=== PATIENT | male | born 1945 | race Two or more races ===

== ENCOUNTER 2024-12-03 18:34 | Emergency (ER) | payer OTHER ==
[~2024-12-03] VITALS: Ht 177.8 cm; Wt 85.8 kg
[2024-12-03 18:34] VITALS: RESP 20; TEMP 97
[2024-12-03] MEDS ORDERED: EPINEPHrine HCL 1 MG/10 ML SYRG IV ONE (18:44)
[2024-12-03] MEDS ORDERED: EPINEPHrine HCL 1 MG/10 ML SYRG ONE (18:51)
--- NOTE | 2024-12-03 18:51 | ED.PDOC ---
CPR-HPI HPI Comments 79-year-old male with known history of CHF, HTN brought in by EMS presents with CPR in progress. Patient arrived at bedside via EMS gurney at 18:34 to bed 15 with ANEL device in place doing compressions. Patient had a witness arrest by family. Family of patient started bystander CPR approximately 5 minutes prior to EMS arrival. Patient has had a total downtime of 34 minutes upon arrival to ER. Per EMS, patient had v-tach x3, and 3 shocks were delivered via defibrillator. EMS gave 3 round of epinephrine and 1 lidocaine. ROSC was achieved briefly at 18:40, but afterwards patient lost pulses again. Despite continued ACLS protocols, TOD was pronounced at 18:51. Family has been notified. 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 Information Source: Emergency Med Personnel Mode of Arrival: EMS Past Medical History PAST MEDICAL HISTORY: CHF, HTN Surgical History: Unknown, Unobtainable Family History Family History: Unknown Social History Smoker: Unknown Alcohol: Unknown Drugs: Unknown Lives In: Home Constitutional: denies: chills, diaphoresis, fatigue, fever, malaise, sweats, weakness, others EENTM: denies: blurred vision, double vision, ear bleeding, ear discharge, ear drainage, ear pain, ear ringing, eye pain, eye redness, hearing loss, mouth pain, mouth swelling, nasal discharge, nose bleeding, nose congestion, nose pain, photophobia, tearing, throat pain, throat swelling, voice changes, others Respiratory: denies: cough, hemoptysis, orthopnea, SOB at rest, shortness of breath, SOB with excertion, stridor, wheezing, others Cardiovascular: denies: chest pain, dizzy spells, diaphoresis, Dyspnea on exertion, edema, irregular heart beat, left arm pain, lightheadedness, palpit ations, PND, syncope, others Gastrointestinal: denies: abdomen distended, abdominal pain, blood streaked b owels, constipated, diarrhea, dysphagia, difficulty swallowing, hematemesis, melena, nausea, poor appetite, poor fluid intake, rectal bleeding, rectal pain, vomiting, others Genitourinary: denies: burning, dysuria, flank pain, frequency, hematuria, incontinence, penile discharge, penile sore, pain, testicle pain, testicle swelling, urgency, others Neurological: denies: dizziness, fainting, headache, left sided numbness, left sided weakness, numbness, paresthesia, pre-existing deficit, right sided numbness, right sided weakness, seizure, speech problems, tingling, tremors, weakness, others Musculoskeletal: denies: back pain, gout, joint pain, joint swelling, muscle pain, muscle stiffness, neck pain, others Integumetry: denies: bruises, change in color, change in hair/nails, dryness, laceration, lesions, lumps, rash, wounds, others Allergic/Immunocompromised: denies: Difficulty Healing, Frequent Infections, Hives, Itching, others Hematologic/Lymphatic: denies: anemia, blood clots, easy bleeding, easy bruisi ng, swollen glands, others Endocrine: denies: excessive hunger, excessive sweating, excessive thirst, exce ssive urination, flushing, intolerance to cold, intolerance to heat, unexplained weight gain, unexplained weight loss, others Psychiatric: denies: anxiety, bipolar disorder, depression, hopeless, panic disorder, schizophrenia, sleepless, suicidal, others Unable to Obtain due to: Medical Urgency (CPR IN PROGRESS) All Other Systems: Reviewed and Negative Physical Exam General Appearance: Severe Distress (CPR IN PROGRESS) HEENT: Other (pupils are fixed and dilated) Neck: Other (intubated) Respiratory: Other (no spontaneous respiration. with bag assisted ventilation, with bilateral clear breath sounds) Cardiovascular: None Breast Exam: Deferred Gastrointestinal: NOT DONE Genitalia: Deferred Pelvic: Deferred Rectal: Deferred Extremities: NOT DONE Musculoskeletal : Apperance: Normal Neurologic: Other (unresponsive) Cerebellar Function: NOT DONE Reflexes: NOT DONE Skin: NOT DONE Lymphatic: NOT DONE Was a procedure done? 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 Indication: Volume resuscitation Room prepared for procedure: Yes Landmen performed hand hygien: Yes Maximal sterile barrier precau: Mask/Eye shield, Sterile gown, Cap, Sterlie gloves, Large sterlie drape Skin Preparation: Chlorhexidine gluconate Skin preparation completely dr: Yes Insertion site: Right, Femoral Central line catheter type: Ove-upubqoco-vri dialysis Number of lumens: 3 Differential Dx CPR Differential Diagnosis: Cardiopulmonary arrest, Dysrhythmia, Electrolyte disorder, Heart Block, Myocardial Infarction, Pulmonary Embolus X-Ray, Labs, Meds, VS Vital Signs Date Time Temp Pulse Resp B/P (MAP) Pulse Ox O2 Delivery O2 Flow Rate FiO2 12/03/24 18:34 97.0 20 97.0 Time of 1ST Reevaluation: 18:40 (ACHIEVED ROSC) Reevaluation 1ST: Improved Time of 2ND Reevaluation: 18:51 (TOD) Reevaluation 2ND: Worsened Patient Education/Counseling: Pt Unresponsive Family Education/Counseling: Other (NOTIFICATION OF ) Additional Information Reviewed patient's previous visit(s): NONE Additional information was gathered from interviewing the following independent historian: 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 pt has an extensive cardiac history, per family friend. he has been in and out of hospitals recently. pt wasgiven a total of 8mg of epi, put on dopamine drip for the transient ROSC, was shocked 3 times by EMT for VT, and he also received 2 amps of bicarb here for prolonged down time. family is at bedside witnessed the resuscitation attempt. time of was 651pm Departure 1 Departure Time of Disposition: 19:12 Impression: Primary Impression: Cardiac arrest Disposition: 20 Condition: Other () Discharged With: Relative, Friend Critical Care Note Critical Care Time?: No Heart Score Heart Score: Heart Score Response (Comments) Value History N/A 0 EKG N/A 0 Age N/A 0 Risk Factors N/A 0 Troponin N/A 0 Total 0 Stability Stability form required: No I personally scribed for KORI HERMAN MD ([email or web address]) on 12/03/24 at 18:51. Electronically submitted by Abran Galloway ([email or web address]). I personally scribed for KORI HERMAN MD ([email or web address]) on 12/03/24 at 18:54. Electronically submitted by Abran Galloway ([email or web address]). I personally scribed for KORI HERMAN MD ([email or web address]) on 12/03/24 at 18:59. Electronically submitted by Abran Galloway ([email or web address]). I personally scribed for KORI HERMAN MD ([facility] on 12/03/24 at 19:03. Electronically submitted by Abran Galloway ([email or web address]). KORI HERMAN MD December 03, 2024 18:51
--- NOTE | 2024-12-03 19:30 | RESUS ---
CODE BLUE ASSESSSMENT History of Events History of Events: Patient brought to ER as a SECURE CODE BLUE. Per EMS, family reports patient suddenly became unresponsive and pulseless. Family denies recent illness or complaints of discomfort. CPR initiated by family. Upon transport to ER patient displayed VTACH on lab clerk. Patient was shocked 3x, administered epi x3, lido x1. Patient intubated in the field. Approximate total downtime prior to ER arrical 34min Initial Information Date: December 03, 2024 Time: 18:33 Location of Arrest: In Field Arrest Witnessed: Yes CPR started by whom: Bystander Pre-Hospital Care: ACLS Type of arrest: Cardiac Pulse Present: No Monitoring: Pulse Oximetry, Capnography, Telemetry Crash Cart Opened and Supplies: Yes Airway Ventilation Breathing at Onset: Assisted Oxygen Delivery Method: Ambu-Bag Artificial Ventilation: Bag/Endo tube Intubation Size: 7.0 cuffed Intubated by: EMS Intubated orally: Yes Tube secured at: 25 Confirmation: Auscultation, Exhaled CO2 Circulation Circulation #1: Time: 18:33 Circulation Comment: Asystole Circulation #2: Time: 18:35 Circulation Comment: PEA Circulation #3: Time: 18:37 Circulation Comment: PEA Circulation #4: Time: 18:39 Pulse Rate (adult): 76 Circulation Comment: ROSC/ BP NOT DETECTABLE Circulation #5: Time: 18:43 Circulation Comment: PEA/CPR RESUMED Circulation #6: Time: 18:45 Circulation Comment: PEA Circulation #7: Time: 18:47 Pulse Rate (adult): 60 Temperature (Fahrenheit): 97.0 Circulation Comment: ROSC/ BP NOT DETECTABLE Circulation #8: Time: 18:49 Circulation Comment: PEA Circulation #9: Time: 18:51 Circulation Comment: PEA Circulation #10: Time: 18:54 Circulation Comment: PEA/ TOD Procedure - Intraosseous Site of Intraosseous: Tibia rosio-medial Intraosseous inserted by: EMS Medications & Response Medications and Responses #1: Medication Time: 18:34 ADULT Medications Given ADULT: Epinephrine 1 mg Route of Administration: IO Medications and Responses #2: Medication Time: 18:35 ADULT Medications Given ADULT: Sodium Bacarbinate 50 meq Route of Administration: IO Medications and Responses #3: Medication Time: 18:37 ADULT Medications Given ADULT: Epinephrine 1 mg Route of Administration: IV Medications and Responses #4: Medication Time: 18:43 ADULT Medications Given ADULT: Epinephrine 1 mg, Sodium Bacarbinate 50 meq Route of Administration: IV Medications and Responses #5: Medication Time: 18:49 ADULT Medications Given ADULT: Epinephrine 1 mg Route of Administration: IV Medications and Responses #6: Medication Time: 18:52 ADULT Medications Given ADULT: Epinephrine 1 mg Route of Administration: IV Procedure - Central Venous Cat Central venous catheter time: 18:39 Central venous catheter site: Rt Femoral Central Venous Catheter Insert: DR HERMAN Nurses Notes [place] Coma Scale Eye Opening: None (1) [place] Coma Scale Verbal: None (1) [place] Coma Scale Motor: None (1) Pupil Reaction: Non Reactive Bedside Blood Glucose: 229 Time Code Ended Time Code Ended: 18:54 Post Arrest Status: Outcome of code: Unsuccessful Patient pronounced by: DR HERMAN Family notified: Yes Code Team Present: DR VIRGIL WYMAN RN LIBRADO RN ALDO BARBA RN April Christianson December 03, 2024 19:30
== END 2024-12-03 19:00 ==
LOC: EDBD 18:34 → ER 18:43
DX: I46.9 Cardiac arrest, cause unspecified (principal); I11.0 Hypertensive heart disease with heart failure; I50.9 Heart failure, unspecified; I47.20 Ventricular tachycardia, unspecified; F17.200 Nicotine dependence, unspecified, uncomplicated; Z79.899 Other long term (current) drug therapy
CPT/HCPCS: 36556; 82947; 92950; 99285; J0171